=== PATIENT | female | born 1970 | race Asian ===

== ENCOUNTER → 2024-12-24 07:57 | Emergency (ER) | payer BC, SELFPAY ==
[2024-12-24 08:08] VITALS: BP 119/62
[2024-12-24 09:18] VITALS: BMI 25.0
[2024-12-24 09:23] VITALS: BP 123/57
--- NOTE | 2024-12-24 09:23 | ED.GENMED ---
History of Present Illness
General
Chief Complaint: Abdominal Pain
Source: patient and spouse
Time Seen by Provider: 12/24/24 09:12
History of Present Illness
History of Present Illness:
54-year-old female with no significant past medical history presents to the ER for evaluation after she started experiencing abdominal cramping, nausea vomiting and diarrhea on Sunday evening while returning home [place], symptoms worse last night
into this morning prompting her to come to the ER. Last episode of vomiting and diarrhea occurred while in the waiting room. No fevers associated, no known sick contacts or recent antibiotics. Patient states the abdominal discomfort is mainly
within the upper part of the abdomen, cramping, nonradiating. She did attempt OTC medication including an antidiarrheal medication last night with minimal relief. Denies any history of similar. Social history otherwise noncontributory. Patient
denies any history of surgeries on the abdomen.
Past History
Past History
ED Past Medical History: Other (mild chronic sinus dz)
ED Past Surgical History: Gynecological (tubal ligation)
Social History
Tobacco: Non-smoker
Alcohol: None
Drug: None
Personal:
Living: with family
Employment: Employed
Family History
Family History: Other (Noncontributory)
Review of Systems
Review of Systems
All Other Systems: ROS reviewed and negative except as documented in HPI and ROS
Phy Exam
Physical Exam
Physical Exam:
GENERAL: Alert , in no apparent distress
EYE: clear conjunctiva b/l
HEAD: NCAT
ENT: mmm.
CARDIAC: Regular rate and rhythm .
LUNGS: Clear breath sounds bilaterally, no acute respiratory distress, no wheezes/rales/rhonchi
ABDOMEN: Soft, without focal tenderness, no r/g, no cvat
NEUROLOGICAL: Alert and oriented
SKIN: Warm and dry, skin intact.
MUSCULOSKELETAL: No edema, well perfused.
PSYCH: Normal and appropriate interaction.
Scores
Heart Failure Risk
Heart Failure Risk Score: Not Applicable
Heart Score for Chest Pain Patients
STEMI patient?: Not applicable
Withdrawal Assessment of Alcohol
Withdrawal Assessment Completed?: Not applicable
Course
Orders/Labs/Results
Orders:
Orders
12/24/24 09:22
0.9% Sodium Chloride 1000 ml [Nss] 1,000 ml IV BOLUS
Ketorolac [Toradol] 30 mg IV NOW STA
Ondansetron Injectable [Zofran] 4 mg IV NOW STA
Test Result ONCE
12/24/24 09:26
Complete Blood Count/With Diff Urgent
Comprehensive Metabolic Panel Urgent
HCG, Serum Qualitative Screen Urgent
Lipase Urgent
12/24/24 10:31
Urinalysis Reflex To Culture Urgent
Date Specimen was Collected: 12/24/24
Time Specimen was Collected: 10:30
Urine Microscopic Reflex Cult Urgent
Urine Culture Urgent
KRISTIE Source: U
Specimen Description:
Date Specimen was Collected: 12/24/24
Time Specimen was Collected: 10:30
Abnormal Lab Results
12/24/24 12/24/24
09:26 10:31
MCHC 32.0 L g/dL
(33.0-37.0)
Absolute Neuts (auto) 8.4 H 10^3/uL
(1.4-6.5)
Absolute Lymphs (auto) 0.8 L 10^3/uL
(1.2-3.4)
Neutrophils % 86.2 H %
(42.2-75.2)
Lymphocytes % 8.6 L %
(20.5-51.1)
Chloride 111 H mmol/L
(98-107)
Creatinine 0.4 L mg/dL
(0.6-1.0)
AST 46 H U/L
(14-36)
ALT 82 H U/L
(0-35)
Leukocyte Esterase Rfl 2+ A
(Negative)
Urine Bacteria (Reflex) Few A
(Negative)
12/24/24 09:26
12/24/24 09:26
Vital Signs
Initial and Last Documented VS:
Initial Vital Signs
Temp Pulse Resp BP Pulse Ox
98.3 F 77 18 119/62 99
12/24/24 08:08 12/24/24 08:08 12/24/24 08:08 12/24/24 08:08 12/24/24 08:08
Last Documented Vital Signs
Temp Pulse Resp BP Pulse Ox
98.3 F 81 16 123/57 98
12/24/24 08:08 12/24/24 11:45 12/24/24 11:45 12/24/24 09:23 12/24/24 11:45
MDM/Problems Addressed
Differential Diagnosis Includes:
- Gastroenteritis
- Traveler's diarrhea
- Foodborne illness
- Electrolyte imbalance
- Diverticulitis/colitis
- GERD
- Pancreatitis
- Appendicitis
- Biliary colic
MDM/Problems Addressed:
54-year-old female presenting the ER for evaluation of nausea vomiting and diarrhea occurring over the last 1-1/2 days, recent travel to [facility]. Abdominal exam is without any focality. Patient is otherwise hemodynamically stable and in no acute
distress. I suspect either foodborne illness or gastroenteritis to be the most likely diagnosis. Will check labs and treat symptoms with Toradol, Zofran and fluids. Reassessment following. Pending reassessment and lab findings will consider
imaging as needed.
*Pulse Oximetry
SaO2: 99
Oxygen Mode of Delivery: Room air
Patient hypoxic: no
*Critical Care Note
Total Time (30-74mins, 75-104mins- exclusive of procedures): Not Applicable
Patient Management
Escalation/DeEscalation of care consider admission/obs:
On multiple reevaluations patient feeling much better, she is able to tolerate p.o. fluids. Feels comfortable being discharged home. Prescription for Zofran sent to pharmacy. Patient aware of return precautions to the ER.
ED Attending Note
-
Portions of this chart may have been created with voice recognition software.� Occasional wrong word or��sound alike� substitutions may have occurred due to the inherent limitations of voice recognition software.
Discharge Plan
Departure
Patient Disposition: Home (Routine Discharge)
Date of Disposition: 12/24/24
Time of Disposition: 12:08
Patient with high blood pressure during this ER visit?: No
Discharge Problem:
Nausea, vomiting, and diarrhea
Instructions: Nausea and Vomiting, Adult (DC)
Prescriptions:
New
ondansetron 4 mg tablet,disintegrating
4 mg PO TIDPRN PRN (Reason: nausea/vomiting) Qty: 10 0RF
No Action
ondansetron 4 MG tablet,disintegrating
4 mg PO TIDPRN PRN (Reason: NAUSEA) Qty: 10 0RF
Referrals:
Fernando Richard DO [Family Provider, Family Practice]
Interventions
Interventions:
*Risk Screen - Suicide Last Done: 12/24/24 08:08
*General Assessment Last Done: 12/24/24 09:18
*Neglect/Abuse Screening Last Done: 12/24/24 08:08
*ED- Fall Risk Assessment Last Done: 12/24/24 09:18
*ED COVID-19 Vaccine History Last Done: 12/24/24 09:18
*Nursing Disposition Last Done: 12/24/24 12:18
IL-Qkrebj-Xcyggxvcuf Assessment Last Done: 12/24/24 09:18
Discharge Date and Time
Print Language: SPANISH
[2024-12-24] MEDS: NSS 1000 IV (09:33)
[2024-12-24 09:50] LABS: % Basophils 0.1 % (0-2); % Eosinophils 0.4 % (0-6); % Immature Granulocytes 0.4 % (0-0.5); % Lymphocytes 8.6 % (20.5-51.1); % Monocytes 4.3 % (1.7-9.3); % Neutrophils 86.2 % (42.2-75.2); Absolute Lymphocytes 0.8 10^3/uL (1.2-3.4); Absolute Monocytes 0.4 10^3/uL (0.1-0.6); Absolute Neutrophils 8.4 10^3/uL (1.4-6.5); Hematocrit 38.1 % (37.0-47.0); Hemoglobin 12.2 g/dL (12.0-16.0); Mean Corpuscular Volume 90.7 fL (81.0-99.0); Mean Platelet Volume 9.1 fL (7.4-10.4); Nucleated Red Blood Cells % 0 %; Platelet Count 271 10^3/uL (130-400); Red Cell Dist. Width 12.8 % (11.5-14.5); White Blood Cell Count 9.7 10^3/uL (4.8-10.8)
[2024-12-24] MEDS: TORADOL 30 MG IV (10:01)
[2024-12-24] MEDS: ZOFRAN 4 MG IV (10:03)
[2024-12-24 10:13] LABS: HCG, Serum Qualitative Screen Negative
[2024-12-24 10:22] LABS: ALT (SGPT) 82 U/L (0-35); AST (SGOT) 46 U/L (14-36); Albumin 4.1 g/dl (3.5-5.0); Alkaline Phosphatase 96 U/L (38-126); Blood Urea Nitrogen 11 mg/dl (7-17); Calcium 9.3 mg/dl (8.4-10.2); Carbon Dioxide 26 mmol/L (22-30); Chloride 111 mmol/L (98-107); Estimated Creatinine Clearance 81 ml/min; Glucose 94 mg/dl (70-99); Lipase 66 U/L (23-300); Sodium 143 mmol/L (135-145); Total Bilirubin 0.7 mg/dl (0.2-1.3); Total Protein 6.9 g/dl (6.3-8.2); eGFR > 60.00
[2024-12-24 10:46] LABS: Urine Albumin Negative (Neg - Trace); Urine Bilirubin Negative (Negative); Urine Character Clear (Clear); Urine Color Yellow; Urine Glucose Negative (Negative); Urine Ketone Negative (Negative); Urine Leukocyte 2+ (Negative); Urine Nitrite Negative (Negative); Urine Occult Blood Negative (Negative); Urine Specific Gravity 1.015 (<1.030); Urine Urobilinogen Negative (Neg - 1+)
[2024-12-24 11:44] LABS: Urine Hyaline Cast 0-2 /LPF (0-2)
[2024-12-24 11:45] LABS: Urine Mucus Moderate
[2024-12-24 11:46] LABS: Urine Bacteria Few (Negative); Urine Red Blood Cell None Seen /HPF (0-2)
== END | disposition home or self-care (01) ==
LOC: EMR 07:57
PROVIDERS: Physician Assistant Medical; EMERGENCY PHYSICIAN Emergency Medicine; FAMILY PHYSICIAN Family Medicine
DX: R11.2 Nausea with vomiting, unspecified (principal); R19.7 Diarrhea, unspecified; Z98.51 Tubal ligation status
CPT/HCPCS: 99282; 96374; 96375; 80053; 81003; 81015; 83690; 84703; 85025; 87086